=== PATIENT | male | born 1985 | race Caucasian/White ===

== ENCOUNTER 2020-01-04 17:24 | Emergency (ER) | payer OTHER, SELFPAY ==
[2020-01-04 17:30] VITALS: BP 136/81; PULSE 91; RESP 14; TEMP 36.9; O2SAT 100
--- NOTE | 2020-01-04 17:40 | ED.GENADULT ---
HPI - General Adult General Chief complaint: Wound/Laceration Stated complaint: yeast infection Time Seen by Provider: 01/04/20 17:45 Source: patient and RN notes reviewed Mode of arrival: ambulatory Limitations: no limitations History of Present Illness HPI narrative: 34-year-old male presents with concern for possible yeast infection. He reports his has had a vaginal yeast infection and after intercourse he noted red, irritated head of his penis. Reports trying [id number] treatments with some relief, however no resolution. He denies abnormal penile discharge, dysuria, hematuria, malaise, fever. Denies any exposure to STDs. complaint: Rash Related Data Allergies Allergy/AdvReac Type Severity Reaction Status Date / Time No Known Allergies Allergy Unverified 01/29/19 19:20 Review of Systems Review of Systems: Narrative: CONSTITUTIONAL: Denies malaise, chills, sweats, or fever. RESPIRATORY: Denies dyspnea. GASTROINTESTINAL: Denies abdominal pain, nausea, vomiting GENITOURINARY: Denies dysuria, penile discharge, or hematuria. SKIN: Reports red irritated rash on the tip of his penis for several days. MUSCULOSKELETAL: Denies myalgia. All systems reviewed & are unremarkable except as noted in HPI and below PMFSH Social History Social History Gender identity (if verbalized by the patient): Male Comments At time of signature, agree with nursing past medical, surgical, social and family history. There is no relevant family history pertinent to the presenting complaint Exam Narrative: Exam Narrative: GENERAL: Well-appearing, well-nourished, and in no acute distress. HEAD: Normocephalic EYES: PERRLA, conjunctivae clear ENT: Mucous membranes moist. NECK: Supple. CHEST: No respiratory distress.Speaks in full sentences. HEART: Regular rate and rhythm. SKIN: Warm, dry. 2 x 3 cm area of erythema, mild excoriation to the anterior glans. No discharge noted, no other rash or lesions noted NEURO: Alert and oriented x3. PSYCH: Normal mood and affect Course Course Emergency Course: Patient is aware of diagnosis, understands and agrees to treatment plan. Anticipatory guidance given. Patient agrees to follow-up as directed and is aware of reasons to seek care at the emergency department. Portions of this record may have been created with voice recognition software Vital Signs Vital signs: Vital Signs Temperature 98.4 F 01/04/20 17:30 Pulse Rate 91 01/04/20 17:30 Respiratory Rate 14 01/04/20 17:30 Blood Pressure 136/81 01/04/20 17:30 Pulse Oximetry 100 01/04/20 17:30 Temperature 98.4 F 01/04/20 17:30 Pulse Rate 91 01/04/20 17:30 Respiratory Rate 14 01/04/20 17:30 Blood Pressure 136/81 01/04/20 17:30 Pulse Oximetry 100 01/04/20 17:30 Reviewed. Pt has been instructed to follow up with his primary care provider within the next week regarding his elevated blood pressure today. Medical Decision Making Vital Signs Vital Signs: Vital Signs Temperature 98.4 F 01/04/20 17:30 Pulse Rate 91 01/04/20 17:30 Respiratory Rate 14 01/04/20 17:30 Blood Pressure 136/81 01/04/20 17:30 Pulse Oximetry 100 01/04/20 17:30 Temperature 98.4 F 01/04/20 17:30 Pulse Rate 91 01/04/20 17:30 Respiratory Rate 14 01/04/20 17:30 Blood Pressure 136/81 01/04/20 17:30 Pulse Oximetry 100 01/04/20 17:30 Critical Care Time Critical Care Time Critical Care Time: No Discharge Plan Discharge Clinical Impression: Candidiasis of penis Patient Disposition: Home, Self-Care Condition: Stable Instructions: Skin Yeast Infection (ED) Additional Instructions: 1) Please follow-up with your primary care doctor in the next 1-2 days. 2) If you have any worsening of symptoms or any other urgent concerns please go to the ER. 3) Please take medications as prescribed and continue taking your home medications as usual. 4) Please read and follow information included i
== END 2020-01-04 17:47 | disposition home or self-care (01) ==
PROVIDERS: Emergency Provider Nurse Practitioner
DX: B37.49 Other urogenital candidiasis (principal)
CPT/HCPCS: 99213; G0463

== ENCOUNTER 2020-01-13 16:29 | Emergency (ER) | payer SELFPAY ==
[2020-01-13 16:45] VITALS: BP 158/82; PULSE 103; RESP 18; TEMP 37.3; O2SAT 97
--- NOTE | 2020-01-13 17:04 | ED.MALEGU ---
HPI - Male Genitourinary General Chief complaint: Urogenital-Male Stated complaint: yeast infection Time Seen by Provider: 01/13/20 17:04 Source: patient and RN notes reviewed History of Present Illness HPI Narrative: Patient is a 34-year-old male that presents the urgent care with complaints of a yeast infection. Patient states that it started approximately 2 weeks ago and he was seen in the urgent care and treated with nystatin and Diflucan. Patient states that he lost his second dose of Diflucan and believes that he is reinfecting himself by his partner. Denies any other concern for STD. States that his old lady does not have medical insurance and will not be treated for her possible yeast infection . Patient denies any current symptoms such as penile discharge or pain with urination. No other acute complaints. No acute distress noted. Patient read the plan of care. Related Data Allergies Allergy/AdvReac Type Severity Reaction Status Date / Time No Known Allergies Allergy Verified 01/13/20 16:53 Review of Systems Review of Systems: Narrative: CONSTITUTIONAL: Denies fever, chills, or sweats. EYES: Denies visual changes, redness, or discharge. ENT: Denies rhinorrhea, congestion, sore throat, or otalgia. CARDIOVASCULAR: Denies chest pain, palpitations, or edema. RESPIRATORY: Denies cough or dyspnea. GASTROINTESTINAL: Denies abdominal pain, nausea, vomiting, or diarrhea. GENITOURINARY: Reports of penile redness/irritation/yeast infection SKIN: Denies rash or itching. MUSCULOSKELETAL: Denies back pain, joint pain, or myalgia. NEUROLOGIC: Denies headache, numbness, or weakness. All other systems reviewed are negative, except as documented in HPI. [facility] Social History Social History Gender identity (if verbalized by the patient): Male Comments At the time of my signature, I reviewed and agree with the nursing past medical, surgical, social, and family history. There is no relevant family history pertinent to the patient complaint. Exam Narrative: Exam Narrative: GENERAL: This is a well-nourished, well-developed patient, in no apparent distress. HEAD: normocephalic, atraumatic. EYES: PERRL. Sclera clear/white. Vision is grossly intact. EARS: External ears normal NOSE: External nose normal with no obvious nasal discharge THROAT: Mucous membranes moist NECK: Neck supple CARDIOVASCULAR: Regular rate and rhythm without murmurs, gallops, or rubs. RESPIRATORY: Clear to auscultation. Breath sounds equal bilaterally. No wheezes, rales, or rhonchi. SKIN: warm, intact with no suspicious lesions or rash, good texture and turgor. NEURO: awake, alert, and oriented to person, place and time. There were no obvious focal neurologic abnormalities. EXTREMITIES: No clubbing, cyanosis, or edema. Course Vital Signs Vital signs: Vital Signs Temperature 99.1 F 01/13/20 16:45 Pulse Rate 103 H 01/13/20 16:45 Respiratory Rate 18 01/13/20 16:45 Blood Pressure 158/82 H 01/13/20 16:45 Pulse Oximetry 97 01/13/20 16:45 Temperature 99.1 F 01/13/20 16:45 Pulse Rate 103 H 01/13/20 16:45 Respiratory Rate 18 01/13/20 16:45 Blood Pressure 158/82 H 01/13/20 16:45 Pulse Oximetry 97 01/13/20 16:45 Reviewed?patient is informed that they may have pre-hypertension or hypertension based on a blood pressure reading in the department. I recommend the patient call the primary care provider listed on their discharge instructions or a physician of their choice this week to arrange follow-up for further evaluation of possible pre-hypertension or hypertension. MDM - Male Genitourinary MDM Narrative Medical decision making narrative: Advised the patient to take 1 dose of Diflucan as directed weekly until complete. Patient should abstain from sex for 48 hours after treatment. If you develop any increase in symptoms associated with dysuria, penile discharge follow-up with PCP. Make sure to eat and drink with the medication. Follow
== END 2020-01-13 17:30 | disposition home or self-care (01) ==
PROVIDERS: Emergency Provider Nurse Practitioner Family
DX: B37.9 Candidiasis, unspecified (principal)
CPT/HCPCS: 99213; G0463

== ENCOUNTER 2020-04-22 14:43 | Emergency (ER) | payer MEDICAID, SELFPAY ==
[2020-04-22 14:52] VITALS: BP 142/83; PULSE 104; RESP 20; TEMP 37.5; O2SAT 99
--- NOTE | 2020-04-22 15:06 | ED.GENADULT ---
HPI - General Adult General Chief complaint: Wound/Laceration Stated complaint: cut on left 4th toe Time Seen by Provider: 04/22/20 15:07 Source: patient and RN notes reviewed Mode of arrival: ambulatory Limitations: no limitations History of Present Illness HPI narrative: 34-year-old male presents with complaints of left 4th toe wound and pain for the past 3 days. 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 Hurts to bear weight. No radiation of pain. No numbness or tingling or loss of mobility. Denies inability to bear weight. 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 Relieving factor is rest. No fever or chills. No suspected foreign body. The patient reports he have not been diagnosed with COVID-19. The patient reports he is not waiting for the results of a COVID-19 lab test. The patient reports he do not have fever, chills, weakness, fatigue, or myalgia. The patient reports he do not have a new or worsening cough or shortness of breath. Denies chest pain. The patient reports he do not have any rhinorrhea, congestion, sore throat, nausea, vomiting, abdominal pain, and diarrhea. Tolerating po intake well. Denies recent traveling. Denies concerns for COVID-19 or exposures been home since [id number] order except for essential household needs, working, and return home. At this time, patient is not suspected of having COVID-19. Some parts of this dictation were generated by voice recognition software and may contain typographical and/or grammatical inaccuracies. Related Data Home Medications Medication Instructions Recorded Confirmed No Home Medications 04/22/20 04/22/20 Allergies Allergy/AdvReac Type Severity Reaction Status Date / Time No Known Allergies Allergy Verified 04/22/20 15:05 Review of Systems Review of Systems: Narrative: CONSTITUTIONAL: Denies fever, chills, sweats. EYES: Denies visual changes, redness, discharge. ENT: Denies rhinorrhea, congestion, sore throat, otalgia. CARDIOVASCULAR: Denies chest pain, palpitations, edema. RESPIRATORY: Denies dyspnea, wheezing, cough. GASTROINTESTINAL: Denies abdominal pain, nausea, vomiting, diarrhea. GENITOURINARY: Denies dysuria, hematuria, abnormal discharge. SKIN: Denies rash or itching. MUSCULOSKELETAL: Denies acute back pain or myalgia. Complains of LT 4th toe wound and tenderness. NEUROLOGIC: Denies numbness or focal weakness. PSYCHIATRIC: Denies anxiety or depression. All systems reviewed & are unremarkable except as noted in HPI and below. [facility] Past Medical History Medical History (Updated 04/23/20 @ 00:01 by Armando Kim) History of tinea pedis Surgical History Surgical History (Updated 04/22/20 @ 15:16 by LUPILLO Bellamy) No significant past surgical history Family History Family History (Updated 04/22/20 @ 15:17 by LUPILLO Bellamy) Father Alive and well Mother Alive and well Social History Social History (Updated 04/22/20 @ 15:17 by LUPILLO Bellamy) Smoking packs per day: 0.5 Smoking cigarettes per day: 10.0 Years smoked: 15 Smoking pack-years: 7.50 Smoking status: Current every day smoker Tobacco type: cigarettes Additional smoking assessment comments: quite for 3 years Alcohol intake: current Substance use: never Living arrangements: with family Occupation/Education: occupation Gender identity (if verbalized by the patient): Male Comments At time of signature, agree with nurse past medical, surgical, social, and family history. There is relevant patient's past medical history pertinent to the presenting complaint, no relevant family history pertinent to the presenting complaint. Exam Narrative: Exam Narrative: GENERAL: This is a well-nourished, well-developed patient, in no apparent distress. HEAD: normocephalic, atraumatic. EYES: PERRL. Sclera clear/white. Vision is grossly intact. CARDIOVASCULAR: Regular rate and
== END 2020-04-22 15:23 | disposition home or self-care (01) ==
PROVIDERS: Emergency Provider Nurse Practitioner Family
DX: L98.8 Other specified disorders of the skin and subcutaneous tissue (principal); B35.3 Tinea pedis; F17.210 Nicotine dependence, cigarettes, uncomplicated
CPT/HCPCS: 99213; G0463

== ENCOUNTER 2021-10-02 11:53 | Emergency (ER) | payer SELFPAY ==
--- NOTE | 2021-10-02 11:57 | ED.URI ---
HPI - URI/Sore Throat General Chief Complaint: Upper Respiratory Infection Stated Complaint: Chest Congestion/Nausea Time Seen by Provider: 10/02/21 11:57 Source: patient and RN notes reviewed History of Present Illness HPI Narrative: Patient is a 36-year-old male who presents the urgent care with complaints of chest congestion, intermittent nausea, rash to the buttocks, and just not feeling well . Patient states that he had Covid 3 weeks ago and his symptoms have been off and on ever since then. Patient states that he wanted to know if he still had Covid . Patient has been taking Tylenol for his symptoms. Denies of any use of kozp-sud-mtogmby medication for the rash. No other acute complaints. No acute distress noted. Patient plan of care. Some parts of this dictation were generated by voice recognition software and may contain typographical and/or grammatical inaccuracies. Related Data Allergies Allergy/AdvReac Type Severity Reaction Status Date / Time No Known Allergies Allergy Verified 10/02/21 12:07 Review of Systems Review of Systems: CONSTITUTIONAL: Denies fever, chills, or sweats. EYES: Denies visual changes, redness, or discharge. ENT: Denies rhinorrhea, congestion, otalgia. Reports of scratchy throat CARDIOVASCULAR: Denies chest pain, palpitations, or edema. RESPIRATORY: Reports of chest congestion. Denies cough or dyspnea. GASTROINTESTINAL: Reports of intermittent nausea and lower abdominal pain (denying those complaints at this time) GENITOURINARY: Denies dysuria or hematuria. SKIN: Denies rash or itching. MUSCULOSKELETAL: Denies back pain, joint pain, or myalgia. NEUROLOGIC: Reports of headaches All other systems reviewed are negative, except as documented in HPI. [facility] Past Medical History Medical History (Updated 10/02/21 @ 12:19 by LUPILLO Smith) History of tinea pedis Surgical History Surgical History (Updated 04/22/20 @ 15:16 by LUPILLO Bellamy) No significant past surgical history Family History Family History (Updated 04/22/20 @ 15:17 by LUPILLO Bellamy) Father Alive and well Mother Alive and well Social History Social History (Updated 04/22/20 @ 15:17 by LUPILLO Bellamy) Smoking packs per day: 0.5 Smoking cigarettes per day: 10.0 Years smoked: 15 Smoking pack-years: 7.50 Smoking status: Current every day smoker Tobacco type: cigarettes Additional smoking assessment comments: quite for 3 years Alcohol intake: current Substance use: never Gender identity (if verbalized by the patient): Male Comments At the time of my signature, I reviewed and agree with the nursing past medical, surgical, social, and family history. There is no relevant family history pertinent to the patient complaint. Exam Narrative: GENERAL: This is a well-nourished, well-developed patient, in no apparent distress. HEAD: normocephalic, atraumatic. EYES: PERRL. Sclera clear/white. Vision is grossly intact. EARS: External ears normal, auditory canals clear and without drainage, TMs normal without perforation. Hearing grossly intact. NOSE: External nose normal with no obvious nasal discharge, nares without redness, no rhinorrhea. THROAT: Mucous membranes moist, moderate erythema noted posterior oropharynx with mild postnasal drainage NECK: Neck supple CARDIOVASCULAR: Regular rate and rhythm without murmurs, gallops, or rubs. RESPIRATORY: Clear to auscultation. Breath sounds equal bilaterally. No wheezes, rales, or rhonchi. GASTROINTESTINAL: Abdomen soft, non-tender, nondistended. Bowel sounds are active. No guarding. SKIN: Scattered nonraised papular dermatitis noted to the upper buttocks region. Warm, intact with no suspicious lesions or rash, good texture and turgor. NEURO: awake, alert, and oriented to person, place and time. There were no obvious focal neurologic abnormalities. EXTREMITIES: No clubbing, cyanosis, or edema. Course Vital Signs Vital
[2021-10-02 12:02] VITALS: BP 151/90; PULSE 108; RESP 14; TEMP 37.6; O2SAT 98
[2021-10-02 12:07] VITALS: BP 151/90; PULSE 108; RESP 14; TEMP 37.6; O2SAT 98
--- NOTE | 2021-10-02 13:31 | PC.NURSE ---
1331-- PT'S STREP CULTURE WAS MISPLACED BY STAFF. PT NOTIFIED TO RETURN TO REPEAT STREP CULTURE BUT PT REFUSED AT THIS TIME STATING HE WAS NOT WORRIED ABOUT STREP. ORDER CANCELLED AND LAB NOTIFIED.
== END 2021-10-02 12:27 | disposition home or self-care (01) ==
PROVIDERS: Emergency Provider Nurse Practitioner Family
DX: L30.9 Dermatitis, unspecified (principal); U09.9 Post COVID-19 condition, unspecified; Z87.891 Personal history of nicotine dependence
CPT/HCPCS: 87880; 99213; G0463

== ENCOUNTER 2022-02-19 16:28 | Emergency (ER) | payer SELFPAY ==
[2022-02-19 16:40] VITALS: BP 143/89; PULSE 110; RESP 20; TEMP 37; O2SAT 98
--- NOTE | 2022-02-19 17:06 | ED.WOUNDLAC ---
HPI - Wound/Laceration General Chief Complaint: Wound/Laceration Stated Complaint: Skin Sore Time Seen by Provider: 02/19/22 17:06 Source: patient, RN notes reviewed and old records reviewed Mode of arrival: ambulatory Limitations: no limitations History of Present Illness HPI narrative: 36-year-old male who presents to [facility] complaints of 2-day history of acute redness and swelling of tissue around tattoo which he performed himself to the right lower medial leg region.No bleeding or any purulent drainage noted from tissue around tattoo. Patient reports that he does have pain to the area and he does note some warmth to the tissue on his right lower leg around tattoo which measures 3cm by 5cm.. Patient has been washing area of tattoo with warm soap and water and applying A&D ointment. Patient denies any fevers chills or sweats or any body aches. Onset (ago): day(s) (2) Related Data Home Medications Medication Instructions Recorded Confirmed No Home Medications 02/19/22 02/19/22 Allergies Allergy/AdvReac Type Severity Reaction Status Date / Time No Known Allergies Allergy Verified 02/19/22 16:37 Review of Systems Review of Systems: CONSTITUTIONAL: Denies fever, chills, or sweats. EYES: Denies visual changes, redness, or discharge. ENT: Denies rhinorrhea, congestion, sore throat, or otalgia. CARDIOVASCULAR: Denies chest pain, palpitations, or edema. RESPIRATORY: Denies cough or dyspnea. GASTROINTESTINAL: Denies abdominal pain, nausea, vomiting, or diarrhea. GENITOURINARY: Denies dysuria or hematuria. SKIN: Denies rash or itching.Poaitive for redness with tissue swelling around tattoo on right lower medial leg for past 2 days. MUSCULOSKELETAL: Denies back pain, joint pain, or myalgia. NEUROLOGIC: Denies headache, numbness, or weakness. PSYCHIATRIC: Denies anxiety or depression. All systems reviewed & are unremarkable except as noted in HPI and below PMFSH Past Medical History Medical History History of tinea pedis Surgical History Surgical History No significant past surgical history Family History Family History Father Alive and well Mother Alive and well Social History Social History Smoking packs per day: 0.5 Smoking cigarettes per day: 10.0 Years smoked: 15 Smoking pack-years: 7.50 Smoking status: Current every day smoker Tobacco type: cigarettes Additional smoking assessment comments: quite for 3 years Alcohol intake: current Substance use: never Gender identity (if verbalized by the patient): Male Comments At time of signature, agree with nursing past medical, surgical, social and family history. There is no relevant family history pertinent to the presenting complaint Exam Narrative: GENERAL: Well-appearing, well-nourished, and in no acute distress. HEAD: Normocephalic, atraumatic. EYES: PERRLA and EOMI. ENT: Nares clear, no rhinorrhea or epistaxis. Mucous membranes moist.TM's normal with no ear pain, throat pink with no lesions or exudates, NECK: Supple.no lymphadenopathy CHEST: Clear to auscultation. No respiratory distress.SAO2 98% on room air HEART: Regular rate and rhythm. No murmur heard. Normal peripheral pulses. ABDOMEN: Soft, nontender, nondistended, normal active bowel sounds. EXTREMITIES: Normal range of motion. No edema. SKIN: Warm, dry, no rash.3cm X 5cm red inflamed tissue area of right medial lower leg with increased redness around tattoo marking. some warmth to tissue no drainge noted. Patient verbalizes discomfort to are with noted swelling of tissue. NEURO: No focal deficits. Alert and oriented x3. Course Course Level of Care: Express Care Visit Vital Signs Vital signs: Vital Signs Temperature 37.0 C 02/19/22 16:40 Pulse Rate 1
== END 2022-02-19 17:32 | disposition home or self-care (01) ==
PROVIDERS: Emergency Provider Registered Nurse
DX: L08.9 Local infection of the skin and subcutaneous tissue, unspecified (principal); B96.89 Other specified bacterial agents as the cause of diseases classified elsewhere; Z87.891 Personal history of nicotine dependence
CPT/HCPCS: 99213; G0463

== ENCOUNTER 2023-08-29 14:31 | Emergency (ER) | payer BC, SELFPAY ==
--- NOTE | 2023-08-29 14:37 | ED.URI ---
HPI - URI/Sore Throat General Chief Complaint: Unspecified Stated Complaint: dizzy/achey Source: patient and RN notes reviewed Mode of arrival: ambulatory Limitations: no limitations History of Present Illness HPI Narrative: patient is a 37-year-old male who presents to the [facility] with multiple complaints. Patient reports generalized body aches, lightheadedness, and headache starting last night. Patient states that he also believes he had a fever. He denies recent cough, sore throat, chest pain, shortness of breath. Denies nausea, vomiting, diarrhea, abdominal pain. Patient states that 2 months ago, he had a severe poison oak rash. He was given a steroid shot and started on steroids. Patient states that most of the poison oak is gone away. However, he believes that he has an infected spot on his buttock. He reports what feels like a knot to his buttock. He is unsure if all of his symptoms are related or if he has COVID. Related Data Home Medications Medication Instructions Recorded Confirmed bupropion HCl 150 mg 24 hr tablet, 150 mg PO DAILY 08/29/23 08/29/23 extended release Allergies Allergy/AdvReac Type Severity Reaction Status Date / Time No Known Allergies Allergy Verified 08/29/23 14:49 Review of Systems Review of Systems: CONSTITUTIONAL: Reports fever, chills, or sweats. EYES: Denies visual changes, redness, or discharge. ENT: Denies otalgia and sore throat CARDIOVASCULAR: Denies chest pain, palpitations, or edema. RESPIRATORY: Denies cough or dyspnea. GASTROINTESTINAL: Denies abdominal pain, nausea, vomiting, or diarrhea. GENITOURINARY: Denies dysuria or hematuria. SKIN: Denies rash or itching. Reports knot to his buttock. MUSCULOSKELETAL: Denies back pain, joint pain. Reports myalgia. NEUROLOGIC: Denies numbness or weakness. Reports headache. Pertinent positives per HPI. [facility] Past Medical History Medical History History of tinea pedis Surgical History Surgical History No significant past surgical history Family History Family History Father Alive and well Mother Alive and well Social History Social History Smoking packs per day: 0.5 Smoking cigarettes per day: 10.0 Years smoked: 15 Smoking pack-years: 7.50 Smoking status: Current every day smoker Tobacco type: cigarettes Additional smoking assessment comments: quite for 3 years Alcohol intake: current Substance use: never Living arrangements: with family Occupation/Education: occupation Gender identity (if verbalized by the patient): Male Comments At the time of my signature, I reviewed and agree with the nursing past medical, surgical, social, and family history. There is no relevant family history pertinent to the patient complaint. Exam Narrative: GENERAL: This is a well-nourished, well-developed patient, in no apparent distress. HEAD: normocephalic, atraumatic. EYES: PERRL. Sclera clear/white. Vision is grossly intact. EARS: External ears normal, auditory canals clear and without drainage, TMs normal without perforation. Hearing grossly intact. NOSE: External nose normal with no obvious nasal discharge, nares without redness, no rhinorrhea. THROAT: Mucous membranes moist, posterior pharynx clear. NECK: Neck supple, non-tender without lymphadenopathy, masses or thyromegaly. CARDIOVASCULAR: Regular rate and rhythm without murmurs, gallops, or rubs. RESPIRATORY: Clear to auscultation. Breath sounds equal bilaterally. No wheezes, rales, or rhonchi. GASTROINTESTINAL: Abdomen soft, non-tender, nondistended. Bowel sounds are active. No hepato-splenomegaly, or palpable masses. No guarding. SKIN: Abscess with centered scab to buttock. Induration and erythema present. NE
[2023-08-29 14:50] VITALS: BP 125/83; PULSE 74; RESP 18; TEMP 36.8; O2SAT 97
--- NOTE | 2023-08-29 15:05 | PC.NURSE ---
RN presents while PRINTING PRESS OPERATOR APPRENTICE performed physical exam of pt's buttock. Area of induration noted to gluteal cleft. I&D not indicated at this time. Pt states that he scratched the area previously and some stuff came out when he squeezed it.
== END 2023-08-29 15:33 | disposition home or self-care (01) ==
PROVIDERS: Emergency Provider Nurse Practitioner
DX: L02.31 Cutaneous abscess of buttock (principal); F17.210 Nicotine dependence, cigarettes, uncomplicated; Z20.822 Contact with and (suspected) exposure to COVID-19
CPT/HCPCS: 87426; 99213; C9803; G0463